=== PATIENT | male | born 1955 | race Caucasian/White ===

== ENCOUNTER → 2021-02-11 | Day surgery (SDC) | payer OTHER, MEDICARE ==
[~2021-02-11] VITALS: Ht 181.6 cm; Wt 108.4 kg
[~2021-02-11] MED LIST: BUMETANIDE2 MG PO; ELIQUIS5 MG PO; LANTUS **100 UNITS/ SC; LASIX80 MG PO; NOVOLOG MI100 UNIT/3 SC; PERCOCET 5-3251 EACH PO; PLAVIX75 MG PO; TOPROL XL 50 MG50 MG PO; ZAROXOLYN2.5 MG PO
[2021-02-11 09:29] LABS: INR 1.07 (0.9-1.2); PROTHROMBIN TIME 13.3 SECONDS (11.8-13.4); PTT 30.5 SECONDS (24.4-34.7)
== END | disposition home or self-care (01) ==
LOC: FAS 08:01
PROVIDERS: Student in an Organized Health Care Education/Training Program
DX: C78.7 Secondary malignant neoplasm of liver and intrahepatic bile duct (principal); C78.89 Secondary malignant neoplasm of other digestive organs; R13.10 Dysphagia, unspecified; K31.9 Disease of stomach and duodenum, unspecified; K29.60 Other gastritis without bleeding; I10 Essential (primary) hypertension; E11.9 Type 2 diabetes mellitus without complications; I25.2 Old myocardial infarction; G47.30 Sleep apnea, unspecified; K21.9 Gastro-esophageal reflux disease without esophagitis; M10.9 Gout, unspecified; I48.91 Unspecified atrial fibrillation; M19.90 Unspecified osteoarthritis, unspecified site; I25.10 Atherosclerotic heart disease of native coronary artery without angina pectoris; E78.00 Pure hypercholesterolemia, unspecified; Z95.0 Presence of cardiac pacemaker; Z95.818 Presence of other cardiac implants and grafts; Z88.0 Allergy status to penicillin; Z88.8 Allergy status to other drugs, medicaments and biological substances; Z79.01 Long term (current) use of anticoagulants; Z79.4 Long term (current) use of insulin; Z79.891 Long term (current) use of opiate analgesic; Z79.899 Other long term (current) drug therapy; Z85.828 Personal history of other malignant neoplasm of skin; Z80.0 Family history of malignant neoplasm of digestive organs; Z82.49 Family history of ischemic heart disease and other diseases of the circulatory system
CPT/HCPCS: 36415; 71045; 76000; 85610; 85730; C1788; J0690; J1644; J1885; J2001; J2250; J2405; J2704; J3010; J7120

== ENCOUNTER → 2021-08-31 | Day surgery (SDC) | payer OTHER, MEDICARE ==
[~2021-08-31] VITALS: Ht 180.3 cm; Wt 106.4 kg
[~2021-08-31] MED LIST changes: +ASPIRIN EC81 MG PO; +CRESTOR20 MG PO
[2021-08-31 06:40] LABS: HCT 35.4 % (42.0-52.0); HGB 11.5 g/dl (13.2-18.0); MCH 30.6 pg (25.0-31.0); MCHC 32.5 g/dL (32.0-36.0); MPV 12.9 fL (6.0-9.5); RBC 3.76 M/uL (4.70-6.00); RDW 19.6 % (11.5-14.0)
[2021-08-31 06:49] LABS: MCV 94.1 fL (78.0-100.0); WBC 22.6 K/uL (4.0-10.5)
[2021-08-31 06:54] LABS: INR 1.72 (0.9-1.2); PROTHROMBIN TIME 19.4 SECONDS (11.8-13.4); PTT 33.7 SECONDS (24.4-34.7)
[2021-08-31 07:08] LABS: ALBUMIN 1.8 g/dL (3.4-5.0); BILIRUBIN - TOTAL 3.3 mg/dL (0.2-1.0); BUN/CREAT RATIO (CALC) 26.7 RATIO; CREATININE 2.36 mg/dL (0.67-1.17); POTASSIUM 4.2 mmol/L (3.5-5.1); TOTAL PROTEIN 6.8 g/dL (6.4-8.2)
== END | disposition home or self-care (01) ==
LOC: FAS 05:22
PROVIDERS: Anesthesiology; Student in an Organized Health Care Education/Training Program
DX: R18.8 Other ascites (principal); C79.9 Secondary malignant neoplasm of unspecified site; I25.10 Atherosclerotic heart disease of native coronary artery without angina pectoris; I11.0 Hypertensive heart disease with heart failure; I50.9 Heart failure, unspecified; E11.9 Type 2 diabetes mellitus without complications; E78.00 Pure hypercholesterolemia, unspecified; K21.9 Gastro-esophageal reflux disease without esophagitis; Z88.0 Allergy status to penicillin; Z88.8 Allergy status to other drugs, medicaments and biological substances; Z79.82 Long term (current) use of aspirin; Z79.899 Other long term (current) drug therapy
CPT/HCPCS: 36415; 80053; 82009; 85610; 85730; J0690; J1642; J2250; J2270; J3370; J7050; J7120